=== PATIENT | female | born 1990 | race Asian ===

== ENCOUNTER 2016-12-16 07:46 | Emergency (ER) | payer OTHER ==
[~2016-12-16] VITALS: Ht 157.5 cm; Wt 113.4 kg
[~2016-12-16 07:46] MED LIST: PROAIR HFA IN
[2016-12-16 08:05] VITALS: BP 144/91; TEMP 97.6
== END 2016-12-16 09:50 | disposition home or self-care (01) ==
LOC: ED 07:46
PROC: 2W3LX1Z Immobilization of Right Lower Extremity using Splint (ICD-10-PCS; principal; 2016-12-16)
DX: S76.111A Strain of right quadriceps muscle, fascia and tendon, initial encounter (principal); S80.11XA Contusion of right lower leg, initial encounter; W13.3XXA Fall through floor, initial encounter; Y92.098 Other place in other non-institutional residence as the place of occurrence of the external cause
CPT/HCPCS: 99283; L1830

== ENCOUNTER 2017-02-04 17:09 | Emergency (ER) | payer BC, OTHER ==
[~2017-02-04] VITALS: Ht 157.5 cm; Wt 114.8 kg
[2017-02-04 17:12] VITALS: BP 155/85; TEMP 98
== END 2017-02-04 19:00 | disposition home or self-care (01) ==
LOC: ED 17:09
DX: O26.851 Spotting complicating pregnancy, first trimester (principal); Z3A.01 Less than 8 weeks gestation of pregnancy
CPT/HCPCS: 36415; 81000; 81025; 84702; 99283

== ENCOUNTER 2022-10-03 17:40 | Emergency (ER) | payer OTHER ==
[~2022-10-03] VITALS: Ht 157.5 cm; Wt 123.8 kg
[2022-10-03 17:40] VITALS: TEMP 98.4
[2022-10-03 18:17] LABS: PLATELET COUNT 479 K/uL (152-353)
[2022-10-03 18:28] LABS: POTASSIUM 3.4 mmol/L (3.6-5.2); SODIUM 140 mmol/L (136-145)
[2022-10-03 19:52] VITALS: BP 175/95
== END 2022-10-03 19:52 | disposition home or self-care (01) ==
LOC: ED 17:40
PROVIDERS: Emergency Medicine Emergency Medical Services
DX: J45.901 Unspecified asthma with (acute) exacerbation (principal); E87.6 Hypokalemia
CPT/HCPCS: 36415; 80053; 81025; 83735; 83880; 84484; 85027; 94664; 96365; 99284; J1200; J2930